=== PATIENT | female | born 1965 | race Caucasian/White ===

== ENCOUNTER → 2020-04-19 17:26 | Outpatient (CLI) | payer OTHER, SELFPAY ==
--- NOTE | ~2020-04-19 | MM_ITS ---
EXAMINATION: MM screening [facility] BI w linda HISTORY: Screening mammogram TECHNIQUE: Craniocaudal and mediolateral oblique 3-D tomosynthesis images were obtained and synthetic 2-D images were generated. CAD analysis was submitted and interpreted. COMPARISON: 02/25/2019 bilateral digital screening mammogram 06/24/2018 and 01/13/2018 diagnostic right digital mammogram and limited right breast ultrasound examin ations 12/28/2017 bilateral digital screening mammogram 01/30/2016 bilateral digital screening mammogram. BREAST PARENCHYMAL COMPOSITION: There are scattered areas of fibroglandular density. FINDINGS: There is an enlarged left axillary mass measuring 2.4 x 2.5 cm. This is new or increased in size compared to prior examinations dating back to 01/30/2016. Numerous linear reticular opacities a re noted in the upper outer left breast diagnostic left mammogram and left axillary and left breast u ltrasound examination are recommended. . Scattered bilateral benign calcifications. Otherwise there is no evidence of suspicious mass, calcification, or architectural distortion to sugg est malignancy in either breast. There has been no other suspicious interval change. IMPRESSION: 1. Interval enlarged left lymph node and new linear opacities in the upper outer left breast 2. Diagnostic left mammogram and left breast and left axillary ultrasound examination are recommended . BI-RADS Category 0: Incomplete: Needs additional imaging evaluation. Reviewed, dictated and finalized at location A. [facility] [employer] IMPRESSION: 1. Interval enlarged left lymph node and new linear opacities in the upper oute r left breast 2. Diagnostic left mammogram and left breast and left axillary ultrasound exami nation are recommended. BI-RADS Category 0: Incomplete: Needs additional imaging evaluation.
== END ==
PROVIDERS: PCP Internal Medicine; Visit Provider Obstetrics & Gynecology
DX: Z12.31 Encounter for screening mammogram for malignant neoplasm of breast (principal)
CPT/HCPCS: 77063; 77067

== ENCOUNTER → 2020-05-30 08:18 | Outpatient (CLI) | payer OTHER, SELFPAY ==
--- NOTE | ~2020-05-30 | MMUS_ITS ---
EXAMINATION: MM diagnostic steve LT w linda, US axilla LT HISTORY: Enlarged left axillary lymph nodes and focal asymmetry left breast TECHNIQUE: Additional 3-D tomosynthesis images of the left breast were performed and synthetic 2-D im ages were generated. CAD analysis was submitted and interpreted. High resolution limited left axillar y ultrasound was performed. COMPARISON: Comparison to multiple prior studies sequentially, with oldest reviewed study dated 12/16. BREAST PARENCHYMAL COMPOSITION: The breasts are heterogenously dense, which may obscure small masses. FINDINGS: MAMMOGRAPHIC FINDINGS: Breast composed of scattered areas of fibroglandular density. There are persistent enlarged left axil maykel lymph nodes. No suspicious calcifications or architectural distortion. ULTRASOUND: Left axillary ultrasound: Multiple mildly enlarged left axillary lymph nodes retaining their normal f atty hilum. Largest lymph node measures 2.2 cm greatest dimension IMPRESSION: 1. Probable benign reactive left axillary lymph nodes. 2. Recommend 6 month follow-up left axillary ultrasound BI-RADS category 3, probably benign findings. Reviewed, dictated and finalized at location A. IMPRESSION: 1. Probable benign reactive left axillary lymph nodes. 2. Recommend 6 month follow-up left axillary ultrasound BI-RADS category 3, probably benign findings.
== END ==
PROVIDERS: PCP Internal Medicine; Visit Provider Obstetrics & Gynecology
DX: R92.8 Other abnormal and inconclusive findings on diagnostic imaging of breast (principal); R59.0 Localized enlarged lymph nodes
CPT/HCPCS: 76882; 77061; 77065; G0279

== ENCOUNTER 2020-07-17 10:35 | Emergency (ER) | payer OTHER, SELFPAY ==
--- NOTE | ~2020-07-17 | XR_ITS ---
XR ankle LT min 3V DATE: 07/17/2020 11:06 INDICATION: Fall. Bilateral ankle pain. TECHNIQUE: 4 views COMPARISON: None FINDINGS: Prominent plantar and posterior calcaneal enthesopathy without erosive change or periostiti s. No fracture or dislocation of the ankle or disruption of the ankle mortise. No periosteal reaction or bone destruction. IMPRESSION: No fracture or dislocation Plantar and posterior calcaneal enthesopathy Reviewed, dictated and finalized at location A.
--- NOTE | ~2020-07-17 | XR_ITS ---
XR ankle RT min 3V DATE: 07/17/2020 11:06 INDICATION: Fall. Right ankle injury, pain, abrasions TECHNIQUE: 4 views COMPARISON: None FINDINGS: Plantar and posterior calcaneal enthesopathy without evidence of periostitis or erosive sayda nges. No fracture or dislocation of the ankle or disruption of the ankle mortise. No periosteal reaction or bone destruction. IMPRESSION: No fracture or dislocation of the ankle Plantar and posterior calcaneal enthesopathy Reviewed, dictated and finalized at location A.
[2020-07-17 10:43] VITALS: BP 132/72; PULSE 64; RESP 16; TEMP 36.1; O2SAT 98
--- NOTE | 2020-07-17 12:00 | ED.GENADULT ---
HPI - General Adult General Chief complaint: Fall Stated complaint: fall last night, skinned her knee Time Seen by Provider: 07/17/20 10:59 Source: patient Mode of arrival: ambulatory Limitations: no limitations History of Present Illness HPI narrative: Patient presents for evaluation of bilateral ankle pain. She indicates she tripped over a landscaping rock last night. She twisted her left ankle in the process. She bumped her right lower extremity against a rock. She did not hit her head nor did she have a LOC. She reports 3/10 pain both ankles, without descriptive quality, worse with weight bearing and movement. She denies paresthesias. No loss of ROM. She has taken tylenol for pain. She is up to date on tetanus. She is diabetic but does not check her BS at home. She is compliant with metformin and farxiga. No additional complaints or concerns. Related Data Allergies Allergy/AdvReac Type Severity Reaction Status Date / Time No Known Allergies Allergy Mild Verified 07/17/20 10:57 Review of Systems Review of Systems: Narrative: CONSTITUTIONAL: Denies fever, chills, or sweats. EYES: Denies visual changes, redness, or discharge. ENT: Denies rhinorrhea, congestion, sore throat, or otalgia. CARDIOVASCULAR: Denies chest pain, palpitations, or edema. RESPIRATORY: Denies cough or dyspnea. GASTROINTESTINAL: Denies abdominal pain, nausea, vomiting, or diarrhea. GENITOURINARY: Denies dysuria or hematuria. SKIN: Reports abrasions to right lower extremity. Denies rash or itching. MUSCULOSKELETAL: Reports bilateral ankle pain. Denies back pain and myalgia. NEUROLOGIC: Denies headache, numbness, dizziness, or weakness. PSYCHIATRIC: Denies anxiety or depression. [facility] Past Medical History Medical History (Updated 07/17/20 @ 12:47 by LISS Alicia, ANANT) Diabetes Hyperlipidemia Surgical History Surgical History No pertinent past surgical history Family History Family History Mother Heart disease Father Heart disease Social History Social History Alcohol intake: current Alcohol use details: social Substance use: never Living arrangements: with family Gender identity (if verbalized by the patient): Female Sexual Orientation (if Verbalized by the Patient): Straight or Heterosexual Spiritual care concerns: No Exam Narrative: Exam Narrative: GENERAL: Well-appearing, well-nourished, and in no acute distress. HEAD: Normocephalic, atraumatic. EYES: PERRLA and EOMI. ENT: Nares clear, no rhinorrhea or epistaxis. Mucous membranes moist. Oropharynx without tonsillar hypertrophy exudate or other lesions. Bilateral TMs pearly guardado nonbulging NECK: Supple. No adenopathy or masses. No carotid bruits or JVD CHEST: Clear to auscultation. No respiratory distress. No wheezes rales or rhonchi HEART: Regular rate and rhythm. No murmur heard. Normal peripheral pulses. ABDOMEN: Soft, nontender, nondistended, normal active bowel sounds. EXTREMITIES: Able to dorsi and plantar flex both feet. No crepitus or deformity. There is no tenderness over left/right medial or lateral ankle. There is tenderness in dorsal aspect of proximal right and left foot SKIN: Abrasions noted to proximal anterior right lower leg and circumferentially to right ankle. Warm, dry, no rash. NEURO: No focal deficits. Alert and oriented x3. PSYCH: Normal mood and affect. Course Course Emergency Course: This is a 54-year-old female who presented with bilateral ankle pain after experiencing a ground-level fall last night. She is full range of motion in both joints. There is no fracture visualized on imaging. She declined analgesics in the emergency department. She is up-to-date on her tetanus. She was advised to apply triple antibiotic ointment. Advised on
[2020-07-17] MEDS: BACITRACIN OINTMENT 15 GM TUBE 1 APPLIC TOPICAL (12:19)
[2020-07-17 13:04] VITALS: BP 150/88; PULSE 59; RESP 16; O2SAT 97
== END 2020-07-17 13:01 | disposition home or self-care (01) ==
PROVIDERS: Emergency Provider Nurse Practitioner; PCP Internal Medicine
DX: S93.402A Sprain of unspecified ligament of left ankle, initial encounter (principal); S93.401A Sprain of unspecified ligament of right ankle, initial encounter; S80.211A Abrasion, right knee, initial encounter; S80.11XA Contusion of right lower leg, initial encounter; E11.9 Type 2 diabetes mellitus without complications; E78.5 Hyperlipidemia, unspecified; W18.09XA Striking against other object with subsequent fall, initial encounter
CPT/HCPCS: 73610; 99283; A9270

== ENCOUNTER → 2020-11-01 08:05 | Outpatient (CLI) | payer OTHER, SELFPAY ==
--- NOTE | ~2020-11-01 | US_ITS ---
EXAMINATION: US axilla LT HISTORY: Six-month follow-up for probably benign left axillary lymph nodes TECHNIQUE: Cartilage left breast ultrasound performed in the area of the left axilla. FINDINGS: There are normal-appearing lymph nodes in the axilla. No suspicious cystic or solid mass or abnormally enlarged lymph node is identified. IMPRESSION: Normal left axillary lymph nodes. BI-RADS Category 1: Negative Reviewed, dictated and finalized at location A.
== END ==
PROVIDERS: PCP Internal Medicine; Visit Provider Obstetrics & Gynecology
DX: R92.8 Other abnormal and inconclusive findings on diagnostic imaging of breast (principal)
CPT/HCPCS: 76882

== ENCOUNTER → 2021-06-12 07:27 | Outpatient (CLI) | payer BC, SELFPAY ==
--- NOTE | ~2021-06-12 | MM_ITS ---
EXAMINATION: MM screening [facility] BI w linda HISTORY: Screening mammogram TECHNIQUE: Craniocaudal and mediolateral oblique 3-D tomosynthesis images were obtained and synthetic 2-D images were generated. CAD analysis was submitted and interpreted. COMPARISON: 05/30/2020, 04/19/2020, 02/25/2019 BREAST PARENCHYMAL COMPOSITION: There are scattered areas of fibroglandular density. FINDINGS: There is no suspicious mass, calcification, or architectural distortion to suggest malignan cy in either breast. There has been no suspicious interval change. IMPRESSION: 1. No mammographic evidence of malignancy. 2. Recommend routine screening mammography in one year. BI-RADS Category 1: Negative Reviewed, dictated and finalized at location A.
== END ==
PROVIDERS: PCP Internal Medicine; Visit Provider Obstetrics & Gynecology Gynecology
DX: Z12.31 Encounter for screening mammogram for malignant neoplasm of breast (principal)
CPT/HCPCS: 77063; 77067

== ENCOUNTER → 2021-09-15 11:53 | Outpatient (CLI) | payer BC, SELFPAY ==
--- NOTE | ~2021-09-15 | DEXA_ITS ---
Bone Density Report Name: RHEA JENKINS Age: 55 Sex: Female Ethnicity: White Date of : 1965 Indication: postmenopausal; screening for osteoporosis; height loss; Referring Provider: JN HALL Study: Bone densitometry was performed. Exam Date: September 15, 2021 Accession number: [id number] Bone Density: Region BMD T-score Z-score Classification AP Spine (L1, L2) 1.036 0.5 1.5 Normal Femoral Neck (Left) 0.961 1.0 2.1 Normal Total Hip (Left) 1.165 1.8 2.5 Normal Femoral Neck (Right) 0.957 1.0 2.0 Normal Total Hip (Right) 1.066 1.0 1.7 Normal Total Hip Mean 1.116 1.4 2.1 Normal World Health Organization criteria for BMD impression classify patients as: Normal (T-score at or above -1.0), Osteopenia (T-score between -1.0 and -2.5), or Osteoporosis (T-score at or below -2.5). 10-year Fracture Risk: FRAX not reported because: All T-scores for Spine Total, Hip Total, Femoral Neck at or above -1.0 Previous Exams: Region Exam Age BMD T-score BMD Change BMD Change Date g/cm2 vs Baseline vs Previous AP Spine(L1, L2) 09/15/2021 55 1.036 0.5 -0.007 -0.007 06/24/2018 52 1.043 0.6 Total Hip(Left) 09/15/2021 55 1.165 1.8 -0.003 -0.003 06/24/2018 52 1.168 1.9 Total Hip(Right) 09/15/2021 55 1.066 1.0 -0.046* -0.046* 06/24/2018 52 1.112 1.4 *Denotes significance at 95% confidence level, LSC for AP Spine = 0.022 g/cm2, LSC for Total Hip = 0.027 g/cm2 Clinical Information Provided by Patient: Has used the following medications: Vitamin D Patient maximum height was 67 Menopause Age: 44 No regular weight bearing exercise Drinks caffeinated beverages Onset of menses at age 13 Number of children 2 Impression: The patient has normal bone mass. The BMD for the Total Hip(Right) decreased, changing by -0.046 since the last DXA exam. Discussion: BONE DENSITY IS ABOVE THE MINIMUM DESIRABLE LEVEL AT ALL SKELETAL SITES TESTED. This patient?s bone mineral density is above the minimum desirable level (T-score -1.0 or better) at all sites measured. The patient should follow a healthful lifestyle (good nutrition with adequate calcium and vitamin D, and appropriate weight-bearing exercise). Follow-Up: Consider repeating this study in 3 to 4 years to reassess this patient's status, or sooner if there is some new clinical indication. Reported by: KRISTIE on 09/15/2021 12:10:00
== END ==
PROVIDERS: PCP Internal Medicine; Visit Provider Obstetrics & Gynecology Gynecology
DX: Z78.0 Asymptomatic menopausal state (principal)
CPT/HCPCS: 77080

== ENCOUNTER → 2022-06-29 16:01 | Outpatient (CLI) | payer BC, SELFPAY ==
--- NOTE | ~2022-06-29 | MM_ITS ---
EXAMINATION: MM screening [facility] BI w linda HISTORY: Screening mammogram TECHNIQUE: Craniocaudal and mediolateral oblique 3-D tomosynthesis images were obtained and synthetic 2-D images were generated. CAD analysis was submitted and interpreted. COMPARISON: 06/12/2021, 05/30/2020, 04/19/2020 BREAST PARENCHYMAL COMPOSITION: There are scattered areas of fibroglandular density. FINDINGS: No suspicious mass, calcification, or architectural distortion are identified in either guillermina ast to suggest malignancy. There has been no suspicious interval change. IMPRESSION: 1. No mammographic evidence of malignancy. 2. Recommend routine screening mammography in one year. BI-RADS Category 1: Negative Reviewed, dictated and finalized at location A.
== END ==
PROVIDERS: PCP Internal Medicine; Visit Provider Nurse Practitioner
DX: Z12.31 Encounter for screening mammogram for malignant neoplasm of breast (principal)
CPT/HCPCS: 77063; 77067

== ENCOUNTER 2023-06-01 08:44 | Outpatient (CLI) | payer BC, SELFPAY ==
[2023-06-01 09:30] LABS: Anion Gap 4 mmol/L (8-16); Blood Urea Nitrogen 15 mg/dL (7-17); Calcium 8.6 mg/dL (8.4-10.2); Carbon Dioxide 28 mmol/L (22-30); Chloride 107 mmol/L (98-107); Estimated Glomerular Filt Rate > 60; Glucose 112 mg/dL (65-110); Potassium 3.9 mmol/L (3.4-5.0); Sodium 139 mmol/L (137-145)
== END 2023-06-01 08:45 | disposition home or self-care (01) ==
LOC: ANHLAB 08:45
PROVIDERS: PCP Internal Medicine; Visit Provider Anesthesiology
DX: Z01.818 Encounter for other preprocedural examination (principal); E11.9 Type 2 diabetes mellitus without complications
CPT/HCPCS: 36415; 80048

== ENCOUNTER 2023-06-03 00:57 | Day surgery (SDC) | payer BC, SELFPAY ==
[2023-05-27 14:02] VITALS: BMI 40.7
--- NOTE | 2023-05-27 14:31 | PC.NURSE ---
Report to the Outpatient Waiting Room, entrance under the green pavilion located off [facility], at time _0930_ on date _MON 06/03/23 . Planned Procedure Time: 1130__. Time changes happen often and if your time is changed the preop area will call you the afternoon before. - You and your visitor will be asked to self-screen and do not enter if you have any COVID symptoms. - A mask is optional within the hospital at this time. Patients may have clear liquids (water, carbonated beverages,apple juice, or clear tea) until 3 hours prior to surgery(_1030am_) with a maximum of 20 ounces. - NO FOOD AFTER MIDNIGHT THE NIGHT BEFORE SURGERY. INCLUDING GUMS/MINTS/HARD CANDY Take the following medications with a SIP of water the morning of surgery: __LEXAPRO DO NOT STOP ANY OF YOUR OTHER PRESCRIPTION MEDICATIONS PRIOR TO SURGERY ?EXCEPT THE FOLLOWING Medications to discontinue per physician MULTIVITAMIN Date to take last dose___05/30 Please no make-up, nail mohawk, hairspray, perfume, deodorant, or body powder the day of surgery. No jewelry (including any body piercings) or valuables the day of surgery, leave them at home. Please take a shower or bath the night before, or the morning of, surgery with an antibacterial soap. Wear comfortable, loose fitting clothing. - Jewelry must be removed prior to entering the operating room. Rings and piercings that are not removed may be cut off. - The hospital will not accept responsibility for valuables. - Please leave all valuables, including medications, at home the day of surgery. If you are going home after surgery, a licensed grab driver must drive you home. - NO public transportation without another adult if you receive anesthesia. - We recommend that an adult stay with you for 24 hours following discharge. - We also recommend that you do not drive, make important decision, drink alcoholic beverages, or take any drugs that were not prescribed by your health care provider for at least 24 hours after your discharge time. Follow any additional instructions given to you from your surgeon. If you or anyone in your household have experienced Covid symptoms in the past week, please notify your surgeon or the nurse liaison at the phone number below for possible testing. Telephone instructions given to __PATTY___and asked if any additional questions and then verbalized understanding. Patient advised to call surgeon office or pre surgery nurse liaison [phone] if any additional questions.
--- NOTE | 2023-06-03 09:58 | WPDHPUPDATE1 ---
History and Physical Update Update Date/Time: 06/03/23 09:58 History and Physical has been reviewed, including an updated exam of the patient. There are NO changes in the patient's condition. Risks, benefits, and alternatives have been discussed and questions answered. Patient agrees to proceed with procedure.
--- NOTE | 2023-06-03 09:58 | PM.HPGS ---
History of Present Illness History of Present Illness Consent: Risks, benefits, and alternatives have been discussed and questions answered. Patient agrees to proceed with procedure. Chief complaint: Sebaceous Cyst of Bilateral Vulva Narrative: Christa Gerard is a 57 year old female with complaints of bilateral cyst of her vulva. They are bothersome and cause itching. Options were discussed with the patient and she wishes to them removed . As they are clustered in patches bilaterally, it was recommended to remove the entire area of affected skin and perform a secondary closure of the skin rather than incise and drain each cyst. In addition, there is a large skin tag on the right labia majora she wishes to have removed as well. Patient agrees to proceed. Risks of infection, bleeding, scarring, and recurrence are discussed with the patient . Review of Systems Review of Systems: not repeated day of surgery; patient states no changes in status PMFSH Past Medical History Medical History (Updated 06/03/23 @ 10:05 by Brooke Babcock MD) Depression with anxiety Diabetes GERD (gastroesophageal reflux disease) Hyperlipidemia (normal spontaneous vaginal delivery) x2 Surgical History Surgical History (Updated 06/03/23 @ 10:04 by Brooke Babcock MD) History of anterior colporrhaphy with posterior colporrhaphy History of laparoscopy 1995 with removal of ovarian cyst History of right oophorectomy laparoscopic pathology showed teratoma History of suburethral sling procedure Family History Family History Mother Heart disease Father Heart disease Social History Social History Smoking status: Never smoker Alcohol intake: current Alcohol use details: social Substance use: never Substance use type: does not use Living arrangements: with family Gender identity (if verbalized by the patient): Female Sexual Orientation (if Verbalized by the Patient): Straight or Heterosexual Spiritual care concerns: No Meds Home Medications and Allergies Home Medications Medication Instructions Recorded Confirmed Type atorvastatin 10 mg tablet 10 mg PO DAILY 05/27/23 05/27/23 History cetirizine 10 mg tablet (Zyrtec) 10 mg PO DAILY 05/27/23 05/27/23 History cholecalciferol (vitamin D3) 50 50 mcg PO DAILY 05/27/23 05/27/23 History mcg (2,000 unit) tablet dapagliflozin propanediol 10 mg 10 mg PO DAILY 05/27/23 05/27/23 History tablet (Farxiga) dulaglutide 1.5 mg/0.5 mL 1.5 mg subcut DAILY 05/27/23 05/27/23 History subcutaneous pen injector (Trulicity) escitalopram oxalate 20 mg tablet 20 mg PO DAILY 05/27/23 05/27/23 History (Lexapro) fluticasone propionate 50 2 spray intranasal DAILY 05/27/23 05/27/23 History mcg/actuation nasal spray,suspension metformin 1,000 mg tablet 1,000 mg PO DAILY 05/27/23 05/27/23 History montelukast 10 mg tablet 10 mg PO DAILY 05/27/23 05/27/23 History multivit with minerals-iron 18 1 tablet PO DAILY 05/27/23 05/27/23 History mg-folic ac 400 mcg-vit K 25 mcg tablet (Adults Multivitamin) pantoprazole 40 mg tablet,delayed 40 mg PO DAILY 05/27/23 05/27/23 History release Allergies Allergy/AdvReac Type Severity Reaction Status Date / Time No Known Allergies Allergy Mild Verified 05/27/23 14:22 Exam Const: General: healthy appearing and alert Orientation/consciousness: patient oriented x3 Resp: Effort & Inspection: normal respiratory effort GI: GI Palp: Yes Soft to palpation, No Tenderness to palpation present (GI) and No Palpable mass present : External Female Exam: lesion ( multiple bilateral sebaceous cysts; right skin tag the labia majora) Speculum Exam - Vagina: normal appearance of the vagina and normal vaginal discharge Speculum Exam - Cervix: normal appearance of the cervix Bi
[2023-06-03] MEDS: ACETAMINOPHEN 500 MG TABLET 1000 MG PO (12:00)
[2023-06-03 12:03] LABS: Glucose Point of Care 104 mg/dl (65-105)
--- NOTE | 2023-06-03 12:05 | WPDANESEPPF ---
Anes - Initial Pre Proc Eval Procedure: Operation Date: 06/03/23 13:45 Proposed Procedures p Excision of Bilateral Vulvar Cysts - Brooke Babcock MD Date/Time: 06/03/23 12:05 Surgeon: Brooke Babcock MD Pre Op Diagnosis: Sebaceous Cyst of Bilateral Vulva Patient Data Age: 57 Gender: F Height: 1.7 m Weight: 118 kg Allergies Allergy/AdvReac Type Severity Reaction Status Date / Time No Known Allergies Allergy Mild Verified 06/03/23 11:58 Home Medications Medication Instructions Recorded Confirmed Type atorvastatin 10 mg tablet 10 mg PO DAILY 05/27/23 05/27/23 History cetirizine 10 mg tablet (Zyrtec) 10 mg PO DAILY 05/27/23 05/27/23 History cholecalciferol (vitamin D3) 50 50 mcg PO DAILY 05/27/23 05/27/23 History mcg (2,000 unit) tablet dapagliflozin propanediol 10 mg 10 mg PO DAILY 05/27/23 05/27/23 History tablet (Farxiga) dulaglutide 1.5 mg/0.5 mL 1.5 mg subcut DAILY 05/27/23 05/27/23 History subcutaneous pen injector (Trulicity) escitalopram oxalate 20 mg tablet 20 mg PO DAILY 05/27/23 05/27/23 History (Lexapro) fluticasone propionate 50 2 spray intranasal DAILY 05/27/23 05/27/23 History mcg/actuation nasal spray,suspension metformin 1,000 mg tablet 1,000 mg PO DAILY 05/27/23 05/27/23 History montelukast 10 mg tablet 10 mg PO DAILY 05/27/23 05/27/23 History multivit with minerals-iron 18 1 tablet PO DAILY 05/27/23 05/27/23 History mg-folic ac 400 mcg-vit K 25 mcg tablet (Adults Multivitamin) pantoprazole 40 mg tablet,delayed 40 mg PO DAILY 05/27/23 05/27/23 History release Laboratory Tests 06/03/23 11:53 POC Capillary Glucose 104 mg/dl (65-105) Patient hx anesthesia problems: none Family hx anesthesia problems: none Results Review: All pre-operative results and documents have been reviewed as part of the pre-operative evaluation. [facility] Past Medical History Medical History (Updated 06/03/23 @ 10:05 by Brooke Babcock MD) Depression with anxiety Diabetes GERD (gastroesophageal reflux disease) Hyperlipidemia (normal spontaneous vaginal delivery) x2 Surgical History Surgical History History of anterior colporrhaphy with posterior colporrhaphy History of laparoscopy 1995 with removal of ovarian cyst History of right oophorectomy laparoscopic pathology showed teratoma History of suburethral sling procedure Family History Family History Mother Heart disease Father Heart disease Social History Social History Smoking status: Never smoker Alcohol intake: current Alcohol use details: social Substance use: never Substance use type: does not use Living arrangements: with family Gender identity (if verbalized by the patient): Female Sexual Orientation (if Verbalized by the Patient): Straight or Heterosexual Spiritual care concerns: No Anes - Eval Final PreProcedure Day of Procedure 06/03/23 12:05 Patient weight: morbidly obese Heart: regular rate and rhythm Lungs: clear to auscultation Airway: Mallampati scale class II Neurological: alert and oriented Last oral intake: >/= 8 hours ASA classification: III Emergent: no Anesthetic plan: proceed Anesthesia type and monitoring: general GIVS and standard monitoring Results Review: All pre-operative results and documents have been reviewed as part of the pre-operative evaluation. Informed Consent: The patient's anesthetic plan and its attendant risks and benefits were discussed with the patient/family/POA. Questions were solicited and answers provided to the satisfaction of the patient/family/POA.
[2023-06-03] MEDS: LACTATED RINGERS 1,000 ML 30 ML IV CONT (12:20)
[2023-06-03 12:24] VITALS: BP 150/82; PULSE 68; RESP 16; TEMP 36.6; O2SAT 96
[2023-06-03] MEDS: LIDO 1%/EPINEPHRINE 1:100,000 50 ML VIAL 10 ML INFILTRATE (12:55)
[2023-06-03 13:16] VITALS: BP 145/80; PULSE 89; RESP 16; TEMP 37.2
--- NOTE | 2023-06-03 13:18 | P.OP_ITS ---
Procedure Note - Detailed Date of Procedure 06/03/23 Pre-op Diagnosis Sebaceous Cyst of Bilateral Vulva Post-op Diagnosis Same Procedure Performed Excision of bilateral labia with sebaceous cysts Surgeon Brooke Babcock MD Anesthesia MAC and Local Findings the midportion the bilateral labia majora are filled with multiple sebaceous cysts of varying sizes Description of Procedure The patient was taken to the operating room and placed under anesthesia in the dorsal lithotomy position. She was prepped and draped in the usual sterile fashion. The skin is injected in bilateral labia majora with 1% lidocaine with epinephrine using a spinal needle to undermine the entire area to be excised. Using a 10 blade the elliptical skin incision was made around the sebaceous cyst laden skin. On the right approximately a 6x3cm area is excised using the s calpel to shave the skin off the underlying tissues. A skin tag is included at the edge of this skin. The left labia majora had a 5x3cm area of skin excised using a scalpel to incise an elliptical incision around the cyst laden skin. The scalpel was then used to shave the skin from the underlying tissues. Bovie cautery was used to cauterize bleeding vessels in the subcutaneous tissue. Skin is closed using 4-0 Vicryl in a subcuticular fashion. The patient was awakened from anesthesia and taken to recovery in stable condition. Sponge, needle, and instrument counts are correct per the OR staff. Estimated Blood Loss 10 Drains No Packing No Pathology Yes ( Bilateral labial skin) Complications No immediate complications Condition Stable Disposition PACU
[2023-06-03 13:45] VITALS: BP 142/79; PULSE 86; RESP 16
[2023-06-03 14:06] LABS: Glucose Point of Care 111 mg/dl (65-105)
[2023-06-03 14:10] VITALS: BP 142/72; PULSE 74; RESP 16
== END 2023-06-03 14:15 | disposition home or self-care (01) ==
PROVIDERS: PCP Internal Medicine; Visit Provider Obstetrics & Gynecology Gynecology
PROC: (CPT 11426; principal; 2023-06-03 13:45)
DX: L72.0 Epidermal cyst (principal); E78.5 Hyperlipidemia, unspecified; E11.9 Type 2 diabetes mellitus without complications; K21.9 Gastro-esophageal reflux disease without esophagitis; F41.8 Other specified anxiety disorders; E66.01 Morbid (severe) obesity due to excess calories; Z68.38 Body mass index [BMI] 38.0-38.9, adult; Z79.85 Long-term (current) use of injectable non-insulin antidiabetic drugs; Z79.84 Long term (current) use of oral hypoglycemic drugs; Z98.890 Other specified postprocedural states; Z82.49 Family history of ischemic heart disease and other diseases of the circulatory system
CPT/HCPCS: 11426 ×2; 82948; 88305; A9270; J2704; J3010; J7120

== ENCOUNTER 2023-07-06 11:41 | Emergency (ER) | payer BC, SELFPAY ==
--- NOTE | ~2023-07-06 | XR_ITS ---
XR knee LT 3V 07/06/2023 12:03 Indication: Left knee pain Procedure: 4 views left knee Comparison: No prior studies for comparison. Findings: No fracture or traumatic malalignment. Mild patellofemoral compartment osteoarthritis. No s ignificant joint effusion. No foreign bodies. Impression: 1: No acute bone or joint abnormality. Reviewed, dictated and finalized at location A. Impression: 1: No acute bone or joint abnormality.
--- NOTE | ~2023-07-06 | XR_ITS ---
XR ankle LT min 3V, XR foot LT min 3V 07/06/2023 12:03 Indication: Status post fall. Injury. Procedure: 4 views left ankle and 4 views left foot Comparison: No prior studies for comparison. Findings: There are avulsion fractures involving the lateral margins of the calcaneus distally in t he proximal aspect of the cuboid. Mild soft tissue swelling. Ankle mortise intact. There are degenera tive calcaneal enthesophytes. Lisfranc joint intact. Impression: 1: Avulsion fractures lateral margins of the calcaneus and cuboid. Reviewed, dictated and finalized at location A. Impression: 1: Avulsion fractures lateral margins of the calcaneus and cuboid. Impression: 1: Avulsion fractures lateral margins of the calcaneus and cuboid.
--- NOTE | ~2023-07-06 | XR_ITS ---
XR forearm LT 2V 07/06/2023 12:05 Indication: Left arm pain after fall Procedure: 2 views left forearm Comparison: No prior studies for comparison. Findings: There is a nondisplaced radial head fracture. There is a joint effusion at the elbow. No ot her fracture is identified. No foreign bodies. Impression: 1: Nondisplaced radial head fracture. Reviewed, dictated and finalized at location A. Impression: 1: Nondisplaced radial head fracture.
--- NOTE | ~2023-07-06 | XR_ITS ---
XR hand LT min 3V 07/06/2023 12:41 INDICATION: Left hand pain after fall PROCEDURE: 3 views left hand COMPARISON: No prior studies for comparison. FINDINGS: Fracture, dislocation or subluxation is not identified. The soft tissues appear within norm al limits. No foreign bodies are identified. IMPRESSION: 1: NO ACUTE BONE OR JOINT ABNORMALITY IDENTIFIED. Reviewed, dictated and finalized at location A.
[2023-07-06 11:43] VITALS: BP 151/82; PULSE 70; RESP 20; TEMP 35.9; O2SAT 98
--- NOTE | 2023-07-06 12:24 | ED.FALL ---
HPI - Fall General Chief Complaint: Fall Stated Complaint: fall Time Seen by Provider: 07/06/23 11:45 History of Present Illness HPI Narrative: Patient presents after fall, she tripped on a concrete block while gardening and fell onto her left ankle, hurting her foot and ankle and knee on the left, she reached her left hand out, did catch herself and now has pain in the left wrist and arm. No focal numbness or weakness. Did not hit her head. No pain to neck or back. No focal numbness or weakness. Related Data Home Medications Medication Instructions Recorded Confirmed atorvastatin 10 mg tablet 10 mg PO DAILY 05/27/23 05/27/23 cetirizine 10 mg tablet (Zyrtec) 10 mg PO DAILY 05/27/23 05/27/23 cholecalciferol (vitamin D3) 50 50 mcg PO DAILY 05/27/23 05/27/23 mcg (2,000 unit) tablet dapagliflozin propanediol 10 mg 10 mg PO DAILY 05/27/23 05/27/23 tablet (Farxiga) dulaglutide 1.5 mg/0.5 mL 1.5 mg subcut DAILY 05/27/23 05/27/23 subcutaneous pen injector (Trulicity) escitalopram oxalate 20 mg tablet 20 mg PO DAILY 05/27/23 05/27/23 (Lexapro) fluticasone propionate 50 2 spray intranasal DAILY 05/27/23 05/27/23 mcg/actuation nasal spray,suspension metformin 1,000 mg tablet 1,000 mg PO DAILY 05/27/23 05/27/23 montelukast 10 mg tablet 10 mg PO DAILY 05/27/23 05/27/23 multivit with minerals-iron 18 1 tablet PO DAILY 05/27/23 05/27/23 mg-folic ac 400 mcg-vit K 25 mcg tablet (Adults Multivitamin) pantoprazole 40 mg tablet,delayed 40 mg PO DAILY 05/27/23 05/27/23 release Allergies Allergy/AdvReac Type Severity Reaction Status Date / Time No Known Allergies Allergy Mild Verified 07/06/23 11:48 Review of Systems Review of Systems: All systems reviewed & are unremarkable except as noted in HPI and below PMFSH Past Medical History Medical History (Updated 07/06/23 @ 13:03 by Radha Souza MD) Depression with anxiety Diabetes GERD (gastroesophageal reflux disease) Hyperlipidemia (normal spontaneous vaginal delivery) x2 Surgical History Surgical History History of anterior colporrhaphy with posterior colporrhaphy History of laparoscopy 1995 with removal of ovarian cyst History of right oophorectomy laparoscopic pathology showed teratoma History of suburethral sling procedure Family History Family History Mother Heart disease Father Heart disease Social History Social History Smoking status: Never smoker Alcohol intake: current Alcohol use details: social Substance use: never Substance use type: does not use Living arrangements: with family Gender identity (if verbalized by the patient): Female Sexual Orientation (if Verbalized by the Patient): Straight or Heterosexual Spiritual care concerns: No Exam Narrative: EXAMINATION OF ORGAN SYSTEMS/BODY AREAS: Constitutional: Vital signs per nursing GENERAL:[No acute distress, non-toxic appearing.] HEAD: Normal with no signs of head trauma. No tenderness. EYES: EOMI, conjunctiva normal ENT: Hearing grossly intact LUNGS: Nonlabored breathing. HEART: [Regular rate and rhythm], normal pulses radial, DP ABD: [Soft], [nontender to palpation] EXT: Normal range of motion with some tenderness to wrist with tenderness to base of palmar left hand, no snuffbox tenderness, normal range of motion of hand this is some tenderness to left forearm, elbow, and lateral ankle SKIN: Bruising over lateral ankle, abrasion to left knee NEURO: [Alert and oriented x 3. No gross focal sensory or strength deficits.] PSYCH: Normal affect Course Vital Signs Vital signs: Vital Signs Temperature 96.6 F L 07/06/23 11:43 Pulse Rate 70 07/06/23 11:43 Respiratory Rate 20 07/06/23 11:43 Blood Pressure 151/82 H 07/06/23 11:43 Pulse Oximetry 98 07/06/23
[2023-07-06] MEDS: TETANUS,DIPHTHERIA,AC PERTUSSIS ADULT (0.5 ML) BOOSTRIX IM (12:39)
[2023-07-06 14:30] VITALS: BP 140/80; PULSE 70; RESP 20; TEMP 36.6; O2SAT 98
== END 2023-07-06 14:32 | disposition home or self-care (01) ==
PROVIDERS: Emergency Provider Emergency Medicine; PCP Internal Medicine
DX: S92.212A Displaced fracture of cuboid bone of left foot, initial encounter for closed fracture (principal); S92.002A Unspecified fracture of left calcaneus, initial encounter for closed fracture; S52.125A Nondisplaced fracture of head of left radius, initial encounter for closed fracture; Z23 Encounter for immunization; E11.9 Type 2 diabetes mellitus without complications; E78.5 Hyperlipidemia, unspecified; K21.9 Gastro-esophageal reflux disease without esophagitis; F41.8 Other specified anxiety disorders; Z79.85 Long-term (current) use of injectable non-insulin antidiabetic drugs; Z79.84 Long term (current) use of oral hypoglycemic drugs; Y93.H2 Activity, gardening and landscaping; Z90.721 Acquired absence of ovaries, unilateral; W18.09XA Striking against other object with subsequent fall, initial encounter
CPT/HCPCS: 29105; 73090; 73130; 73562; 73610; 73630; 90471; 90715; 99284; A4565

== ENCOUNTER 2023-08-08 16:09 | Outpatient (CLI) | payer BC, SELFPAY ==
--- NOTE | ~2023-08-08 | XR_ITS ---
EXAMINATION: XR elbow LT min 3V DATE: 08/08/2023 16:26 INDICATION: Displaced fracture of head of left radius. TECHNIQUE: 4 views of left elbow were obtained. COMPARISON: Left forearm radiographs 07/06/2023 FINDINGS: Bone alignment is normal. There is a nondisplaced fracture of radial head. Joint spaces are normal. There is an enthesophyte of medial humeral epicondyle. No elbow joint effusion. IMPRESSION: 1. Nondisplaced radial head fracture again seen. Reviewed, dictated and finalized at location A.
== END 2023-08-08 16:10 | disposition home or self-care (01) ==
LOC: ANHIMG 16:11
PROVIDERS: PCP Internal Medicine; Visit Provider Orthopaedic Surgery
DX: S52.122A Displaced fracture of head of left radius, initial encounter for closed fracture (principal); X58.XXXA Exposure to other specified factors, initial encounter
CPT/HCPCS: 73080

== ENCOUNTER 2023-08-09 15:39 | Outpatient (CLI) | payer BC, SELFPAY ==
--- NOTE | ~2023-08-09 | MM_ITS ---
EXAMINATION: MM screening steve BI w linda HISTORY: Screening mammogram TECHNIQUE: Craniocaudal and mediolateral oblique 3-D tomosynthesis images were obtained and synthetic 2-D images were generated. CAD analysis was submitted and interpreted. COMPARISON: June 29, 2022, June 12, 2021 bilateral screening mammogram examinations BREAST PARENCHYMAL COMPOSITION: There are scattered areas of fibroglandular density. FINDINGS: Scattered bilateral benign calcifications. There is no evidence of suspicious mass, calcifi cation, or architectural distortion to suggest malignancy in either breast. There has been no suspici ous interval change. IMPRESSION: 1. No mammographic evidence of malignancy. 2. Recommend routine screening mammography in one year. BI-RADS Category 2: Benign finding(s). Reviewed, dictated and finalized at location B.
== END 2023-08-09 15:40 ==
LOC: MICIMG 15:40
PROVIDERS: PCP Nurse Practitioner; Visit Provider Nurse Practitioner
DX: Z12.31 Encounter for screening mammogram for malignant neoplasm of breast (principal)
CPT/HCPCS: 77063; 77067

== ENCOUNTER 2024-08-11 16:04 | Outpatient (CLI) | payer BC, SELFPAY ==
--- NOTE | ~2024-08-11 | MM_ITS ---
EXAMINATION: MM screening steve BI w linda HISTORY: Screening TECHNIQUE: Craniocaudal and mediolateral oblique 3-D tomosynthesis images were obtained and synthetic 2-D images were generated. CAD analysis was submitted and interpreted. COMPARISON: Comparison to multiple prior studies sequentially, with oldest reviewed study dated 02/15. BREAST PARENCHYMAL COMPOSITION: Not dense: There are scattered areas of fibroglandular density. FINDINGS: There is no evidence of suspicious mass, calcification, or architectural distortion to sugg est malignancy in either breast. There has been no suspicious interval change. IMPRESSION: 1. No mammographic evidence of malignancy. 2. Recommend routine screening mammography in one year. BI-RADS Category 1: Negative Reviewed, dictated and finalized at location A.
== END 2024-08-11 16:05 | disposition home or self-care (01) ==
LOC: MICIMG 16:05
PROVIDERS: PCP Nurse Practitioner; Visit Provider Nurse Practitioner
DX: Z12.31 Encounter for screening mammogram for malignant neoplasm of breast (principal)
CPT/HCPCS: 77063; 77067

== ENCOUNTER 2024-11-02 15:17 | Outpatient (CLI) | payer BC, SELFPAY ==
--- NOTE | ~2024-11-02 | DEXA_ITS ---
Bone Density Report Name: RHEA JENKINS Age: 59 Sex: Female Ethnicity: White Date of : 1965 Indication: postmenopausal; screening for osteoporosis; height loss; Referring Provider: JN HALL Study: Bone densitometry was performed. Exam Date: November 02, 2024 Accession number: [id number] Bone Density: Region BMD T-score Z-score Classification AP Spine(L1, L2) 1.005 0.2 1.4 Normal Femoral Neck (Left) 0.848 0.0 1.2 Normal Total Hip (Left) 1.139 1.6 2.5 Normal Femoral Neck (Right) 0.872 0.2 1.4 Normal Total Hip (Right) 1.085 1.2 2.0 Normal Total Hip Mean 1.112 1.4 2.3 Normal World Health Organization criteria for BMD impression classify patients as: Normal (T-score at or above -1.0), Osteopenia (T-score between -1.0 and -2.5), or Osteoporosis (T-score at or below -2.5). 10-year Fracture Risk: FRAX not reported because: All T-scores for Spine Total, Hip Total, Femoral Neck at or above -1.0 Previous Exams: -- Region Exam Age BMD T-score BMD Change BMD Change Date g/cm2 vs Baseline vs Previous -- AP Spine (L1-L2) 11/02/2024 59 1.005 0.2 -3.7%# -3.0%# 09/15/2021 55 1.036 0.5 -0.7% -0.7% 06/24/2018 52 1.043 0.6 Total Hip(Left) 11/02/2024 59 1.139 1.6 -2.4%# -2.2%# 09/15/2021 55 1.165 1.8 -0.3% -0.3% 06/24/2018 52 1.168 1.9 Total Hip(Right) 11/02/2024 59 1.085 1.2 -2.5%# 1.7%# 09/15/2021 55 1.066 1.0 -4.1%* -4.1%* 06/24/2018 52 1.112 1.4 -- *Denotes significance at 95% confidence level, LSC for AP Spine = 0.022 g/cm2, LSC for Total Hip = 0.027 g/cm2 # Denotes dissimilar scan types or analysis methods Clinical Information Provided by Patient: Has used the following medications: Vitamin D Patient maximum height was 67.5 Menopause Age: 44 No regular weight bearing exercise Drinks caffeinated beverages Onset of menses at age 14 Number of children 2 Impression: The patient has normal bone mass. Unable to evaluate interval change due to the use of different scan modes. Discussion: BONE DENSITY IS ABOVE THE MINIMUM DESIRABLE LEVEL AT ALL SKELETAL SITES TESTED. This patient?s bone mineral density is above the minimum desirable level (T-score -1.0 or better) at all sites measured. The patient should follow a healthful lifestyle (good nutrition with adequate calcium and vitamin D, and appropriate weight-bearing exercise). Follow-Up: Consider repeating this study in 5 years or sooner if there is some new clinical indication. Reported by: LEIA on 11/02/2024 3:49:00 PM. Reviewed, dictated and finalized at location A.
== END 2024-11-02 15:18 | disposition home or self-care (01) ==
LOC: MICIMG 15:20
PROVIDERS: PCP Obstetrics & Gynecology Gynecology; Visit Provider Obstetrics & Gynecology Gynecology
DX: Z13.820 Encounter for screening for osteoporosis (principal); Z78.0 Asymptomatic menopausal state
CPT/HCPCS: 77080